=== PATIENT | male | born 1995 | race Caucasian/White ===

== ENCOUNTER 2023-12-25 14:03 | Emergency (ER) | payer OTHER, SELFPAY ==
[2023-12-25 14:09] VITALS: BP 132/75; PULSE 70; RESP 16; TEMP 37.1; O2SAT 99; BMI 36.6
--- NOTE | 2023-12-25 14:17 | DI.RAD.S_ITS ---
PROCEDURE: XR FINGER RT MIN 2V INDICATIONS: laceration/injury TECHNIQUE: AP hand, 2 views of the right thumb finger(s) acquired. COMPARISON: None. FINDINGS: Bones: No fractures or dislocations. No suspicious bony lesions. Soft tissues: No suspicious soft tissue calcifications. Soft tissue swelling and small soft tissue injury noted over the right thumb distally. No radiopaque soft tissue foreign bodies. IMPRESSION: Right thumb without acute fracture or dislocation. No radiopaque soft tissue foreign body seen. Dictated by: Alex Nichols M.D. on 12/25/2023 at 14:52 Approved by: Alex Nichols M.D. on 12/25/2023 at 14:54
--- NOTE | 2023-12-25 15:57 | ED.WOUNDLAC ---
HPI - Wound/Laceration <Cristina Hubbard PA-C - Last Filed: 12/28/23 13:55> General Chief Complaint: Wound/Laceration Stated Complaint: R Hand Laceration Time Seen by Provider: 12/25/23 15:57 Source: patient Mode of arrival: Ambulatory History of Present Illness HPI narrative: 28-year-old male presents to the ER with concern for injury to his left thumb that he sustained at work. 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 He says it did not damage the nail and he feels he is able to move his thumb normally but it did bleed quite a bit until he got to the ER when they bandaged in triage. Denies previous injury to this thumb. He presents with L and I paperwork. Denies any other complaints or concerns Related Data Allergies Allergy/AdvReac Type Severity Reaction Status Date / Time No Known Drug Allergies Allergy Verified 12/25/23 14:14 Review of Systems <Cristina Hubbard PA-C - Last Filed: 12/28/23 13:55> Review of Systems Narrative: See HPI Patient History <Cristina Hubbard PA-C - Last Filed: 12/28/23 13:55> Social History Smoking Status: Never smoker Smoking Status: Never smoker Substance Use Type: does not use Exam <Cristina Hubbard PA-C - Last Filed: 12/28/23 13:55> Narrative Exam Narrative: GENERAL: [28] year old patient appears stated age. Well-developed patient, in mild distress. HEAD: Atraumatic. Normocephalic. EYES: Pupils equal round and reactive. Extraocular motions intact. No scleral icterus. No injection or drainage. ENT: Nose without bleeding, purulent drainage. Airway patent. NECK: Trachea midline. Non tender CARDIOVASCULAR: Regular rate and rhythm without murmurs, gallops, or rubs. RESPIRATORY: No increased work of breathing respiratory distress EXTREMITIES: On the affected left thumb there is an avulsion of superficial layers of skin with exposure of capillary bed with persistent bleeding on the lateral distal aspect of the thumb it does not affect the nail and is not full-thickness. Range of motion of the affected finger is intact No other edema or joint tenderness. NEURO: AOx3. SKIN: No rash or erythema of visible areas Initial Vital Signs Initial Vital Signs: Vital Signs Temperature 98.8 F 12/25/23 14:09 Pulse Rate 70 12/25/23 14:09 Respiratory Rate 16 12/25/23 14:09 Blood Pressure 132/75 12/25/23 14:09 Pulse Oximetry 99 12/25/23 14:09 Oxygen Delivery Method Room Air 12/25/23 14:09 <Chito Villeda MD - Last Filed: 01/02/24 15:22> Initial Vital Signs Initial Vital Signs: Vital Signs Temperature 98.8 F 12/25/23 14:09 Pulse Rate 70 12/25/23 14:09 Respiratory Rate 16 12/25/23 14:09 Blood Pressure 132/75 12/25/23 14:09 Pulse Oximetry 99 12/25/23 14:09 Oxygen Delivery Method Room Air 12/25/23 14:09 Course <Cristina Hubbard PA-C - Last Filed: 12/28/23 13:55> Orders Ordered: ED Orders 12/25/23 14:17 XR finger RT min 2V Stat Vital Signs Vital signs: Vital Signs - 8 hr 12/25/23 14:09 Temperature 98.8 F Pulse Rate 70 Respiratory Rate 16 Blood Pressure 132/75 Pulse Oximetry 99 Oxygen Delivery Method Room Air <Chito Villeda MD - Last Filed: 01/02/24 15:22> Orders Ordered: ED Orders 12/25/23 14:17 XR finger RT min 2V Stat Vital Signs Vital signs: Vital Signs - 8 hr 12/25/23 14:09 Temperature 98.8 F Pulse Rate 70 Respiratory Rate 16 Blood Pressure 132/75 Pulse Oximetry 99 Oxygen Delivery Method Room Air MDM - Wound/Laceration <Cristina Hubbard PA-C - Last Filed: 12/28/23 13:55> Differential Diagnosis Differential diagnosis: Likely laceration and avulsion of skin Medical Records Attestation: I reviewed the patient's medical records. Imaging Data Extremity x-ray #1: My Impression: Agree with Radiology interpretation Radiologist's Impression: [address] [address] XRay Report Signed Patient: Clayton Morales MR#: [id number] : 1995 Acct:[id number] Age/Sex: 28 / M Date of Service: 12/25/23 Loc: ED Accession Number: [id number] Procedure: XR finger RT min 2V Ordering Provider: Chito Villeda MD PROCEDURE: XR FINGER RT MIN 2V INDICATIONS: laceration/injury TECHNIQUE: AP hand, 2 views of the right thumb finger(s) acquired. COMPARISON: None. FINDINGS: Bones: No fractures or dislocations. No suspicious bony lesions. Soft tissues: No suspicious soft tissue calcifications. Soft tissue swelling and small soft tissue injury noted over the right thumb distally. No radiopaque soft tissue foreign bodies. IMPRESSION: Right thumb without acute fracture or dislocation. No radiopaque soft tissue foreign body seen. Dictated by: Alex Nichols M.D. on 12/25/2023 at 14:52 Approved by: Alex Nichols M.D. on 12/25/2023 at 14:54 [facility] Narrative Medical decision making narrative: This is a well-appearing 28-year-old male presenting with L and I paperwork with concern for injury to his left thumb after he sliced the very tip of the skin off with an avulsion of the skin at [employer] at work today. Exam shows avulsed skin with persistent capillary bleeding no indication for/wound is not amenable to sutures. A blood strep a dressing with Surgicel is placed on the wound with a pressure dressing with nonstick gauze after the wound is cleaned. Coban wrap for final layer. Patient is given additional dressing supplies and advised regarding not removing the current dressing for 36 hours or so, keep it clean and dry off work for the next few days as I anticipate this will continued to bleed if he uses his thumb excessively at work or the dressing gets wet or has to be removed early. [id number] [place] out during patient's visit. Return precautions provided, follow-up plan discussed, all questions answered. Discharge Plan Departure Patient Disposition: Home Clinical Impression: Laceration Instructions: DI for Laceration Repair Activity Restrictions/Additional Instructions: *You have been diagnosed with [avulsion/laceration of skin of your left thumb] *What to do: *Please continue to take your regular medications as directed. [ ] New medication prescriptions sent to your pharmacy: [ ] [ ] New medication written as a paper prescription [X ] No new medications given *Please follow up with your primary care provider in 2-3 days, call for an appointment. Let them know you were seen in the Emergency Department and that we ask that you be seen in follow up. We will electronically transmit a record of today's note if your PCP is in our system. Your L and I paperwork was completed during [id number]. I think given the nature of your wound it is best for you probably not to work the next few days because you shaved off a portion of the end of your thumb it is likely going to continue to try to bleed with excessive use or if it is not well bandaged. We placed a blood. Her dressing on it today and as slight pressure dressing over the top of this which I would like you to leave on for the next 24-48 hours. I gave you additional supplies to Re bandaged it if it does bleed the next time he removed the dressing. But it should ultimately start to heal and stop bleeding with removal of the dressing over the next few days. Try to keep the dressing clean and dry, after you do not need this bulky dressing you can use a simple Band-Aid I would recommend topical antibiotic ointment that is Vaseline based this will also help with the healing process and to minimize any continued bleeding or oozing. Monitor for signs of infection although this is less likely given there is great circulation in this part of the body. Your x-rays today looked good no evidence of bony damage, your exam today also did not suggest deep structure damage. *If you do not have a primary care provider please contact the [facility] Resource line at [phone]. They will ask some questions about your medical history and help get you set up with a doctor in the community. *Return to Emergency Department if you should have any new, worsening or concerning symptoms, such as [fever greater than 101 F, shaking chills, worsening pain, persistent vomiting or other bothersome symptoms] Stand Alone Forms: Patient Portal/API, Work Release Note ED Sign-out <Chito Villeda MD - Last Filed: 01/02/24 15:22> Cosign ED Attending Clay Attestation: I was immediately available in the department for consultation. This documentation has been reviewed and I agree with assessment and plan. Supervised by Chito Villeda MD
[2023-12-25 18:15] VITALS: BP 136/75; PULSE 82; RESP 16; TEMP 36.7; O2SAT 98
== END 2023-12-25 18:16 | disposition home or self-care (01) ==
PROVIDERS: Emergency Provider Student in an Organized Health Care Education/Training Program
DX: S61.012A Laceration without foreign body of left thumb without damage to nail, initial encounter (principal); W26.0XXA Contact with knife, initial encounter; Y93.G3 Activity, cooking and baking; Y92.511 Restaurant or cafe as the place of occurrence of the external cause; Y99.0 Civilian activity done for income or pay
CPT/HCPCS: 73140; 99281; 99282